=== PATIENT | male | born 1955 | race Caucasian/White ===

== ENCOUNTER → 2019-04-17 13:40 | Outpatient (CLI) | payer BC, SELFPAY ==
--- NOTE | 2019-04-17 13:45 | US_ITS ---
HISTORY: CKD 3 EXAMINATION: US Kidney(s) complete (eg, kidneys T bladder) TECHNIQUE: Bruce scale and color doppler images were obtained of the kidneys. 53 images COMPARISON: None FINDINGS: RIGHT KIDNEY: Measures 10 x 4.6 x 5.3 cm. The cortex is 12 mm thick. Mild right renal hydronephrosis. No shadowing calculus, focal lesion or perinephric collection is demonstrated. LEFT KIDNEY: Measures 8.1 x 4.1 x 4.8 cm. Cortex is 12 mm thick. There is no hydronephrosis. No shadowing calculus, focal lesion or perinephric collection is demonstrated. URINARY BLADDER: The urinary bladder is mostly decompressed US/Kidney and Bladder IMPRESSION: Mild right hydronephrosis. at 0318 Reported and signed by: Gerald Hinds MD Electronically Signed: Gerald Hinds MD at 3:17 EDT Tel , Service support ,
== END ==
PROVIDERS: Family Provider Nurse Practitioner Family; PCP Nurse Practitioner Family; Referring Provider Internal Medicine Nephrology; Visit Provider Internal Medicine Nephrology
DX: N18.3 Chronic kidney disease, stage 3 (moderate) (principal); R80.9 Proteinuria, unspecified
CPT/HCPCS: 76770

== ENCOUNTER → 2019-05-19 09:44 | Outpatient (CLI) | payer BC, SELFPAY ==
[2019-05-19 10:57] LABS: PSA,Total - Annual Screen 1.08 ng/mL (0.00-4.00)
== END ==
PROVIDERS: Family Provider Nurse Practitioner Family; PCP Nurse Practitioner Family; Referring Provider Urology; Visit Provider Urology
DX: Z12.5 Encounter for screening for malignant neoplasm of prostate (principal)
CPT/HCPCS: 36415; 84153; G0103

== ENCOUNTER → 2019-05-27 14:52 | Outpatient (CLI) | payer BC, SELFPAY ==
--- NOTE | 2019-05-27 15:00 | CT_ITS ---
STUDY: CT ABDOMEN AND PELVIS WITHOUT CONTRAST REASON FOR EXAM: Male, 63 years old. Elevated RADIATION DOSAGE (If Supplied By Facility): CTDIvol = ( 9.65 ) mGy, DLP = ( 469.96 ) mGycm TECHNIQUE: Transaxial images were obtained from the dome of the diaphragm to the symphysis pubis without oral contrast, and without intravenous contrast. Sagittal and coronal images were reconstructed. Individualized dose optimization techniques were used for this CT. COMPARISON: None. FINDINGS: The visualized lung bases are unremarkable. The visualized portions of the heart are within normal limits. Normal liver. Normal gallbladder and extrahepatic biliary system. Normal spleen. Normal pancreas. Normal bilateral adrenal glands. No hydronephrosis or urinary tract calcifications. Normal visualized stomach. Normal small intestine. There are multiple colonic diverticula consistent with diverticulosis. The appendix is visualized and appears normal. There is diffuse atherosclerotic calcification of the abdominal aorta, without a demonstrated aneurysm. Normal inferior vena cava. Normal retroperitoneum. There is thickening of the inferior urinary bladder wall (coronal image 57) measuring up to 7 mm that may be artifact of incomplete distention versus true wall thickening. Prostate is mildly enlarged. There are operative changes of the bilateral inguinal regions. Normal osseous structures. CT/Abdomen/Pelvis without Cont IMPRESSION: 1. No hydronephrosis or urinary tract calcifications. 2. Inferior urinary bladder wall thickening (cystitis, muscular hyperplasia versus neoplasm) versus artifact of under distention. 3. Diverticulosis without evidence of diverticulitis. 4. Mild prostamegaly. Electronically Signed: Loyd Olivo MD (Brooks) at 18:56 EST , Service support ,
== END ==
PROVIDERS: Family Provider Nurse Practitioner Family; PCP Nurse Practitioner Family; Referring Provider Urology; Visit Provider Urology
DX: N13.39 Other hydronephrosis (principal)
CPT/HCPCS: 74176

== ENCOUNTER → 2020-01-04 08:34 | Outpatient (CLI) | payer MEDICARE, SELFPAY ==
[2020-01-04 09:41] LABS: Hematocrit 43.3 % (40-54); Hemoglobin 13.7 g/dL (13.0-16.5); Mean Corp Hgb Conc 31.6 g/dL (32-36); Mean Corpuscular Hgb 30.2 pg (27.0-32.0); Mean Corpuscular Volume 95.4 fL (80-94); Mean Platelet Vol. 10.3 fl (6.2-12.0); Platelet Count 214 K/mm3 (150-450); RBC Distribution Width CV 13.3 % (11.6-14.6); RBC Distribution Width SD 46.8 fl (35.1-43.9); Red Blood Count 4.54 M/mm3 (4.6-6.2); White Blood Count 6.5 K/mm3 (4.4-11.0)
[2020-01-04 09:52] LABS: Protein, Urine (Random) 6.4 mg/dL (<11.9); Protein:Creat Ratio 151 mg/g CRE (0-200)
[2020-01-04 10:09] LABS: Albumin, Serum 3.8 g/dL (3.2-5.0); BUN 27 mg/dL (7-18); BUN/Creat Ratio 20.8 RATIO (10-20); Calcium,Total 8.7 mg/dL (8.5-10.1); Chloride 104 mmol/L (98-107); EST Glomerular Filtration Rate 59 mL/min (>60); Est Glom Filt Rate - Afr Amer 71 mL/min (>60); Glucose 99 mg/dL (74-106); Phosphorus 2.6 mg/dL (2.5-4.9); Potassium 4.1 mmol/L (3.5-5.1); Sodium Level 140 mmol/L (136-145)
== END ==
PROVIDERS: Family Provider Nurse Practitioner Family; PCP Nurse Practitioner Family; Referring Provider Internal Medicine Nephrology; Visit Provider Internal Medicine Nephrology
DX: N18.3 Chronic kidney disease, stage 3 (moderate) (principal); R80.9 Proteinuria, unspecified
CPT/HCPCS: 36415; 80069; 82570; 84156; 85027

== ENCOUNTER → 2020-07-25 11:19 | Outpatient (CLI) | payer MEDICARE, OTHER, SELFPAY ==
[2020-07-25 12:37] LABS: Albumin, Serum 3.6 g/dL (3.2-5.0); BUN 18 mg/dL (7-18); BUN/Creat Ratio 11.8 RATIO (10-20); Calcium,Total 8.8 mg/dL (8.5-10.1); Chloride 104 mmol/L (98-107); Creatinine, Serum 1.52 mg/dL (0.70-1.30); EST Glomerular Filtration Rate 49 mL/min (>60); Est Glom Filt Rate - Afr Amer 59 mL/min (>60); Glucose 101 mg/dL (74-106); Phosphorus 2.6 mg/dL (2.5-4.9); Potassium 4.3 mmol/L (3.5-5.1); Sodium Level 139 mmol/L (136-145)
== END ==
PROVIDERS: Visit Provider Internal Medicine Nephrology
DX: N18.30 Chronic kidney disease, stage 3 unspecified (principal)
CPT/HCPCS: 36415; 80069

== ENCOUNTER → 2021-02-07 09:04 | Outpatient (CLI) | payer MEDICARE, OTHER, SELFPAY ==
[2021-02-07 10:06] LABS: Albumin, Serum 3.6 g/dL (3.2-5.0); BUN 24 mg/dL (7-18); BUN/Creat Ratio 16.7 RATIO (10-20); Calcium,Total 8.9 mg/dL (8.5-10.1); Chloride 105 mmol/L (98-107); Creatinine, Serum 1.44 mg/dL (0.70-1.30); EST Glomerular Filtration Rate 52 mL/min (>60); Est Glom Filt Rate - Afr Amer 63 mL/min (>60); Glucose 114 mg/dL (74-106); Potassium 3.9 mmol/L (3.5-5.1); Sodium Level 140 mmol/L (136-145)
== END ==
PROVIDERS: Referring Provider Internal Medicine Nephrology; Visit Provider Internal Medicine Nephrology
DX: N18.30 Chronic kidney disease, stage 3 unspecified (principal)
CPT/HCPCS: 36415; 80069

== ENCOUNTER → 2022-02-06 | Outpatient (CLI) | payer MEDICARE, OTHER, SELFPAY ==
[2022-02-06 10:55] LABS: Protein, Urine (Random) < 6.0 mg/dL (<11.9); Protein:Creat Ratio 279 mg/g CRE (0-200)
[2022-02-06 11:11] LABS: Albumin, Serum 3.7 g/dL (3.2-5.0); BUN 29 mg/dL (7-18); BUN/Creat Ratio 17.2 RATIO (10-20); Calcium,Total 9.3 mg/dL (8.5-10.1); Chloride 106 mmol/L (98-107); Creatinine, Serum 1.69 mg/dL (0.70-1.30); EST Glomerular Filtration Rate 43 mL/min (>60); Est Glom Filt Rate - Afr Amer 52 mL/min (>60); Glucose 94 mg/dL (74-106); Phosphorus 2.8 mg/dL (2.5-4.9); Potassium 4.3 mmol/L (3.5-5.1); Sodium Level 139 mmol/L (136-145)
== END | disposition home or self-care (01) ==
PROVIDERS: Visit Provider Internal Medicine Nephrology
DX: N18.30 Chronic kidney disease, stage 3 unspecified (principal); R80.9 Proteinuria, unspecified
CPT/HCPCS: 36415; 80069; 82570; 84156

== ENCOUNTER → 2022-03-26 | Outpatient (CLI) | payer MEDICARE, OTHER, SELFPAY ==
[2022-03-26 13:36] LABS: Albumin, Serum 3.6 g/dL (3.2-5.0); BUN 28 mg/dL (7-18); BUN/Creat Ratio 15.8 RATIO (10-20); Calcium,Total 9.2 mg/dL (8.5-10.1); Chloride 104 mmol/L (98-107); Creatinine, Serum 1.77 mg/dL (0.70-1.30); EST Glomerular Filtration Rate 41 mL/min (>60); Est Glom Filt Rate - Afr Amer 49 mL/min (>60); Glucose 102 mg/dL (74-106); Phosphorus 2.9 mg/dL (2.5-4.9); Potassium 4.7 mmol/L (3.5-5.1); Sodium Level 139 mmol/L (136-145)
== END | disposition home or self-care (01) ==
LOC: LAB 11:34
PROVIDERS: Referring Provider Internal Medicine Nephrology; Visit Provider Internal Medicine Nephrology
DX: N18.30 Chronic kidney disease, stage 3 unspecified (principal)
CPT/HCPCS: 36415; 80069

== ENCOUNTER → 2022-08-30 | Outpatient (CLI) | payer MEDICARE, OTHER, SELFPAY ==
[2022-08-30 10:48] LABS: Albumin, Serum 3.6 g/dL (3.2-5.0); BUN 36 mg/dL (7-18); BUN/Creat Ratio 21.3 RATIO (10-20); Calcium,Total 9.2 mg/dL (8.5-10.1); Chloride 104 mmol/L (98-107); Creatinine, Serum 1.69 mg/dL (0.70-1.30); EST Glomerular Filtration Rate 43 mL/min (>60); Est Glom Filt Rate - Afr Amer 52 mL/min (>60); Glucose 97 mg/dL (74-106); Phosphorus 3.4 mg/dL (2.5-4.9); Potassium 4.9 mmol/L (3.5-5.1); Sodium Level 139 mmol/L (136-145)
== END | disposition home or self-care (01) ==
PROVIDERS: Visit Provider Internal Medicine Nephrology
DX: N18.30 Chronic kidney disease, stage 3 unspecified (principal)
CPT/HCPCS: 36415; 80069

== ENCOUNTER → 2022-10-18 | Outpatient (CLI) | payer MEDICARE, OTHER, SELFPAY ==
[2022-10-18 11:42] LABS: PSA,Total - Annual Screen 1.32 ng/mL (0.00-4.00)
== END | disposition home or self-care (01) ==
PROVIDERS: Referring Provider Registered Nurse; Visit Provider Registered Nurse
DX: Z12.5 Encounter for screening for malignant neoplasm of prostate (principal)
CPT/HCPCS: 36415; 84153; G0103

== ENCOUNTER → 2023-05-07 | Outpatient (CLI) | payer MEDICARE, OTHER, SELFPAY ==
[2023-05-07 11:17] LABS: Hematocrit 40.3 % (40-54); Hemoglobin 12.9 g/dL (13.0-16.5); Mean Corpuscular Hgb 30.9 pg (27.0-32.0); Mean Corpuscular Volume 96.4 fL (80-94); Mean Platelet Vol. 10.2 fl (6.2-12.0); Platelet Count 211 K/mm3 (150-450); RBC Distribution Width CV 13.2 % (11.6-14.6); RBC Distribution Width SD 47.1 fl (35.1-43.9); Red Blood Count 4.18 M/mm3 (4.6-6.2); White Blood Count 6.3 K/mm3 (4.4-11.0)
[2023-05-07 11:59] LABS: Albumin, Serum 3.5 g/dL (3.2-5.0); BUN 34 mg/dL (7-18); BUN/Creat Ratio 21.5 RATIO (10-20); Calcium,Total 8.8 mg/dL (8.5-10.1); Chloride 107 mmol/L (98-107); Creatinine, Serum 1.58 mg/dL (0.70-1.30); EST Glomerular Filtration Rate 46 mL/min (>60); Est Glom Filt Rate - Afr Amer 56 mL/min (>60); Glucose 96 mg/dL (74-106); Phosphorus 2.9 mg/dL (2.5-4.9); Potassium 4.6 mmol/L (3.5-5.1); Sodium Level 138 mmol/L (136-145)
== END | disposition home or self-care (01) ==
PROVIDERS: Referring Provider Internal Medicine Nephrology; Visit Provider Internal Medicine Nephrology
DX: N18.31 Chronic kidney disease, stage 3a (principal)
CPT/HCPCS: 36415; 80069; 85027

== ENCOUNTER → 2024-02-03 | Outpatient (CLI) | payer MEDICARE, OTHER, SELFPAY ==
[2024-02-03 12:53] LABS: PSA,Total - Annual Screen 2.32 ng/mL (0.00-4.00)
== END | disposition home or self-care (01) ==
LOC: LAB 11:27
PROVIDERS: Referring Provider Urology; Visit Provider Urology
DX: Z12.5 Encounter for screening for malignant neoplasm of prostate (principal)
CPT/HCPCS: 36415; 84153; G0103

== ENCOUNTER → 2024-02-17 | Outpatient (CLI) | payer MEDICARE, OTHER, SELFPAY ==
[2024-02-17 11:01] LABS: Albumin, Serum 3.6 g/dL (3.2-5.0); BUN 36 mg/dL (7-18); BUN/Creat Ratio 19.7 RATIO (10-20); Calcium,Total 9.2 mg/dL (8.5-10.1); Chloride 111 mmol/L (98-107); Creatinine, Serum 1.83 mg/dL (0.70-1.30); EST Glomerular Filtration Rate 39 mL/min (>60); Est Glom Filt Rate - Afr Amer 47 mL/min (>60); Glucose 98 mg/dL (74-106); Phosphorus 2.8 mg/dL (2.5-4.9); Potassium 4.7 mmol/L (3.5-5.1); Sodium Level 140 mmol/L (136-145)
[2024-02-17 11:02] LABS: Protein, Urine (Random) < 6.0 mg/dL (<11.9)
== END | disposition home or self-care (01) ==
LOC: LAB.FUTURE 09:48 → LAB 09:49
PROVIDERS: Referring Provider Internal Medicine Nephrology; Visit Provider Internal Medicine Nephrology
DX: R80.9 Proteinuria, unspecified (principal); N18.31 Chronic kidney disease, stage 3a
CPT/HCPCS: 36415; 80069; 82570; 84156

== ENCOUNTER → 2024-07-27 | Outpatient (CLI) | payer MEDICARE, OTHER, SELFPAY ==
[2024-07-27 11:25] LABS: Albumin, Serum 3.6 g/dL (3.2-5.0); BUN 37 mg/dL (7-18); Calcium,Total 9.1 mg/dL (8.5-10.1); Chloride 107 mmol/L (98-107); Creatinine, Serum 1.68 mg/dL (0.70-1.30); EST Glomerular Filtration Rate 43 mL/min (>60); Est Glom Filt Rate - Afr Amer 52 mL/min (>60); Glucose 93 mg/dL (74-106); Phosphorus 3.1 mg/dL (2.5-4.9); Potassium 4.8 mmol/L (3.5-5.1); Sodium Level 138 mmol/L (136-145)
== END | disposition home or self-care (01) ==
LOC: LAB 10:33
PROVIDERS: Visit Provider Internal Medicine Nephrology
DX: N18.31 Chronic kidney disease, stage 3a (principal); R80.9 Proteinuria, unspecified
CPT/HCPCS: 36415; 80069

== ENCOUNTER → 2025-03-29 | Outpatient (CLI) | payer MEDICARE, OTHER, SELFPAY ==
--- OUTSIDE RECORDS SUMMARY | 2025-02-03 09:22 | XMS RPT_ITS ---
Author Name Auto Generated Organization [facility] Care Team Providers Care Mop Handle Assembler Name Role Phone DR MIKALA POWERS MD Attending Unavailab le DUANE DO, DR STEVEN Primary Care Unavailable DUANE DO, DR STEVEN Attending Unavailable DUANE DO, DR STEVEN Primary Care Unavailable DUANE DO, DR STEVEN Attending Unavailable DUANE DO, DR STEVEN Primary Care Unavailable PROBLEMS No Problem Records Found PROCEDURES No Procedure Records Found RESULTS PBNP Collected: 02/03/2025 9:27 AM Status: F Source: [facility] TYPE CODE TESTS RESULT OUT OF RANGE REFERENCE UNITS LAB PBNP(LOINC) N-Terminal proBNP 176 High 0-125 pg/mL Result Comment: NT-proBNP re sults of less than 300 pg/mL effectively rules out acute congestive heart failure with 99% negative predictive value. Performed By: #### LIPID, PB HEEL DIPPER #### [address] [address] LIPID Collected: 02/03/2025 9:27 AM Status: F Source: [facility] TYPE CODE TESTS RESULT OUT OF RANGE REFERENCE UNITS LAB CHOL(LOINC) Cholesterol 181 0-200 mg/dL Result Comment: Cholesterol Reference Interval: Less than 200 Desirable 200-239 Borderline high risk 240 and above High risk LAB TRIG(LOINC) Triglycerides 71 0-150 mg/dL Result Comment: Triglyceride Reference Interval: Less than 150 Normal 150-199 Borderline high risk 200-499 High risk 500 or higher Very high risk LAB HD(LOINC) HDL Cholesterol 53 40-60 mg/dL LAB LDL(LOINC) LDL Cholesterol 114 0-130 mg/dL Performed By: #### LIPID, PB HEEL DIPPER #### [address] [address] TSH Collected: 11:21 AM Status: F Source: [facility] TYPE [facility] TESTS RESULT OUT OF RANGE REFERENCE UNITS LAB TSH(LOINC) TSH 2.71 0.36-3.74 mcIU/mL Performed By: #### FT3, TSH, FT4 #### [address] [address] FT4 Collected: 11:21 AM Status: F Source: [facility] TYPE [facility] TESTS RESULT OUT OF RANGE REFERENCE UNITS LAB FT4(LOINC) Free T4 1.07 0.76-1.46 ng/dL Performed By: #### FT3, TSH, FT4 #### [address] [address] FT3 Collected: 5 11:21 AM Status: F Source: [facility] TYPE [facility] TESTS RESULT OUT OF RANGE REFERENCE UNITS LAB FT3(LOINC) Free T3 2.25 Low 2.30-4.00 pg/mL Performed By: #### FT3, TSH, FT4 #### [address] [address] CBC Collected: 5 3:14 PM Status: F Source: [facility] TYPE CODE TESTS RESULT OUT OF RANGE REFERENCE UNITS LAB WBC(LOINC) WBC 5.9 4.5-10.8 10 3/mcL LAB RBCCT(LOINC) RBC 4.25 Low 4.50-6.00 10 6/mcL LAB HGB(LOINC) Hgb 13.2 13.0-17.5 G/dL LAB HCT(LOINC) Hct 39.5 Low 40.0-52.0 % LAB MCV(LOINC) MCV 93.0 81.0-100.0 fL LAB MCH(LOINC) MCH 31.1 27.0-33.0 pg LAB MCHC(LOINC) MCHC 33.4 32.0-36.0 G/dL LAB RDW(LOINC) RDW 14.0 11.5-15.5 % LAB PLT(LOINC) Platelet 183 150-450 10 3/mcL LAB MPV(LOINC) MPV 7.6 6.4-10.5 fL Performed By: #### FT4, FE, CMP, CBC, GFR, FT3, ANEU, ADIFF, TSH, FERR #### [address] [address] .AUTO DIFF Collected: 10/27/2024 3:14 PM Status: F Source: [facility] TYPE CODE TESTS RESULT OUT OF RANGE REFERENCE UNITS LAB JODY(LOINC) Neutrophil % 61.7 50.0-75.0 % LAB LYM(LOINC) Lymphocyte % 24.2 20.0-40.0 % LAB MON(LOINC) Monocyte % 10.2 2.0-13.0 % LAB EO(LOINC) Eosinophil % 3.2 0.0-6.0 % LAB BAS(LOINC) Basophil % 0.7 0.0-2.5 % LAB ABLYM(LOINC) Lymphocyte, Absolute 1.4 0.9-4.3 10 3/mcL LAB SHELLEY(LOINC) Monocyte, Absolute 0.6 0.1-1.4 10 3/mcL LAB AEOS(LOINC) Eosinophil, Absolute 0.2 0.0-0.7 10 3/mcL LAB ABAS(LOINC) Basophil, Absolute 0.0 0.0-0.3 10 3/mcL Performed By: #### FT4, FE, CMP, CBC, GFR, FT3, ANEU, ADIFF, TSH, FERR #### [place] [address] [place], [place] [address] .NEUABS Collected: 3:14 PM Status: F Source: [facility] TYPE [facility] TESTS RESULT OUT OF RANGE REFERENCE UNITS LAB ANEU(LOINC) Neutrophil, Absolute 3.7 2.3-8.1 10 3/mcL Performed By: #### FT4, FE, CMP, CBC, GFR, FT3, ANEU, ADIFF, TSH, FERR #### [address] [address] FE Collected: 3:14 PM Status: F Source: [facility] TESTS RESULT OUT OF RANGE REFERENCE UNITS LAB FE(LOINC) Iron 97 65-175 mcg/dL Performed By: #### FT4, FE, CMP, CBC, GFR, FT3, ANEU, ADIFF, TSH, FERR #### [address] [address] FT3 Collected: 5 3:14 PM Status: F Source: [facility] TESTS RESULT OUT OF RANGE REFERENCE UNITS LAB FT3(LOINC) Free T3 2.36 2.30-4.00 pg/mL Performed By: #### FT4, FE, CMP, CBC, GFR, FT3, ANEU, ADIFF, TSH, FERR #### [address] [address] FERR Collected: 3:14 PM Status: F Source: [facility] TYPE [facility] TESTS RESULT OUT OF RANGE REFERENCE UNITS LAB FERR(LOINC) Ferritin 64.0 26.0-388.0 ng/mL Performed By: #### FT4, FE, CMP, CBC, GFR, FT3, ANEU, ADIFF, TSH, FERR #### [address] [address] TSH Collected: 5 3:14 PM Status: F Source: [facility] TYPE [facility] TESTS RESULT OUT OF RANGE REFERENCE UNITS LAB TSH(LOINC) TSH 5.79 High 0.36-3.74 mcIU/mL Performed By: #### FT4, FE, CMP, CBC, GFR, FT3, ANEU, ADIFF, TSH, FERR #### [address] [place], [place] [address] FT4 Collected: 3:14 PM Status: F Source: [facility] TYPE CODE TESTS RESULT OUT OF RANGE REFERENCE UNITS LAB FT4(LOINC) Free T4 1.08 0.76-1.46 ng/dL Performed By: #### FT4, FE, CMP, CBC, GFR, FT3, ANEU, ADIFF, TSH, FERR #### [address] [place], [place] [address] CMP Collected: 10/27/2024 3:14 PM Status: F Source: [facility] TYPE CODE TESTS RESULT OUT OF RANGE REFERENCE UNITS LAB GLU(LOINC) Glucose Level 90 83-110 mg/dL LAB NA(LOINC) Sodium Level 140 136-145 mmol/L LAB K(LOINC) Potassium Level 4.9 3.5-5.1 mmol/L LAB CL(LOINC) Chloride 105 98-107 mmol/L LAB CO2(LOINC) CO2 29 23-31 mmol/L LAB EBAL(LOINC) Electrolyte Balance 6.0 4.0-15.0 mEq/L LAB BUN(LOINC) BUN 37 High 7-18 mg/dL LAB CRE(LOINC) Creatinine Lvl (s) 1.65 High 0.67-1.17 mg/dL LAB BC(LOINC) BUN/Creatinine Ratio 22 7-27 ratio LAB CA(LOINC) Calcium Lvl 9.5 8.4-10.2 mg/dL LAB PROT(LOINC) Total Protein 7.1 6.4-8.2 G/dL LAB ALB(LOINC) Albumin Level 3.8 3.4-4.8 G/dL LAB GLB(LOINC) Globulin 3.3 2.7-4.4 G/dL LAB AG(LOINC) A/G Ratio 1.2 1.1-2.5 ratio LAB BILT(LOINC) Bili Total 0.3 0.2-1.0 mg/dL Result Comment: Use of this assay is not recommended for patients undergoing treatment with eltrombopag due to the potential for falsely elevated results. LAB AP(LOINC) Alk Phos 89 40-135 U/L LAB AST(LOINC) AST/SGOT 19 10-40 U/L LAB ALT(LOINC) ALT/SGPT 26 16-63 U/L Performed By: #### FT4, FE, CMP, CBC, GFR, FT3, ANEU, ADIFF, TSH, FERR #### [address] [place], [place] [address] .GFR Collected: 10/27/2024 3:14 PM Status: F Source: [facility] TYPE CODE TESTS RESULT OUT OF RANGE REFERENCE UNITS LAB eGFR(LOINC) Estimated Glomerular Filtration Rate 44 ml/min/1. 73sqm Result Comment: Stages of Chronic Kidney Disease (CKD) Stage Description eGFR(ml/min/1.73 sq.m.) CKD 1 Normal kidney function or >=90 normal kindney function with possible kidney damage (ex. Proteinuria) CKD 2 Kidney damage with mild loss 60-89 of kidney function CKD 3a Mild to moderate loss of kidney 45-59 function CKD 3b Moderate to severe loss of 30-44 of kindey function CKD 4 Severe loss of kidney function 15-29 CKD 5 Kidney failure <15 Note: (go live 2024) the eGFR calculation was updated to the 2020 CKD-EPI creatinine equation without a race factor to calculate the eGFR results. Performed By: #### FT4, FE, CMP, CBC, GFR, FT3, ANEU, ADIFF, TSH, FERR #### [address] [place], [place] [address] ALLERGIES No Allergies Records Found ENCOUNTERS ADMIT/DISCHARGE ACCOUNT NUMBER ADMITTING ENCOUNTER CLASS LOC ATION SOURCE 02/03/2025/ 5 [id number] [facility]11[facility]2024/ 5 [id number] [facility] 10/27/2024/ 5 [id number] [facility] PAYERS ENCOUNTER GUARANTOR PAYER SUBSCRIBER SOURCE 02/03/2025 WYATT LEONARD: [id number] [address] [place] [phone]~cottonm [email or web address] el: (HP) Primary Insurance:MEDICARE PART B INSCOPolicy Number: [id number] Date:6033-12-12Sdbb Name:[facility] [address] [place] [address]ZA: WYATT L LEKALAANDOB: [id number] [address] [place] [phone]: (HP) (WP) [facility] 02/03/2025 Secondary Insurance:EVERENCE INSCOPolicy Number: [id number] Date:1004-25-75Cuzd Name:[place] [address]NL: WYATT L LEHMANDOB: [id number] [address]Oxo: (HP) (WP) [facility] 12/11/2024 WYATT L LEKLAAANDOB: [id number] [address] [address]~Quraterkita [email or web address] el: (HP) Primary Insurance:EVERENCE INSCOPolicy Number: [id number] Date:5619-98-95Sgfv Name:[place] [address]YY: WYATT L LEHMANDOB: [id number] [address] [place] [phone]: (HP) (WP) [facility] 12/11/2024 Secondary Insurance:MEDICARE PART B INSCOPolicy Number: [id number] Date:2856-21-89Ojzi Name:[facility] ADMINISTRATORS [address] [place] [address]MU: WYATT OWENSANDOB: [id number] [address] [place] [phone]: (HP) (WP) [facility] 10/27/2024 WYATT OWENSANDOB: [id number] [address] [place] [phone]~[email or web address] el: (HP) Primary Insurance:MEDICARE PART B INSCOPolicy Number: [id number] Date:5144-52-91Trjp Name:[facility] CITYKar SING[address] [address]NQ: WYATT OWENSANDOB: [id number] [address]Vot: (HP) (WP) [facility] 10/27/2024 Secondary Insurance:EVERENCE INSCOPolicy Number: [id number] Date:5196-29-55Vlzb Name:JOSIAH Arm[place] [address]SD: WYATT URIARTEOB: [id number] [address]Oiy: (HP) (WP) [facility]
--- OUTSIDE RECORDS SUMMARY | 2025-02-03 09:22 | XMS RPT_ITS ---
Author Name Auto Generated Organization [facility] Care Team Providers Care Trimmer Buffing Wheel Name Role Phone DR MIKALA POWERS MD Attending Unavailab le DUANE DO, DR STEVEN Primary Care Unavailable DUANE DO, DR STEVEN Attending Unavailable DUANE DO, DR STEVEN Primary Care Unavailable DUANE DO, DR STEVEN Attending Unavailable DUANE DO, DR STEVEN Primary Care Unavailable PROBLEMS No Problem Records Found PROCEDURES No Procedure Records Found RESULTS PBNP Collected: 02/03/2025 9:27 AM Status: F Source: [facility] TYPE CODE TESTS RESULT OUT OF RANGE REFERENCE UNITS LAB PBNP(LOINC) N-Terminal proBNP 176 High 0-125 pg/mL Result Comment: NT-proBNP re sults of less than 300 pg/mL effectively rules out acute congestive heart failure with 99% negative predictive value. Performed By: #### LIPID, PB CIGAR MAKING MACHINE SUPERVISOR #### [address] [address] LIPID Collected: 02/03/2025 9:27 AM Status: F Source: [facility] TYPE CODE TESTS RESULT OUT OF RANGE [...] 0-130 mg/dL Performed By: #### LIPID, PB CIGAR MAKING MACHINE SUPERVISOR #### [address] [address] TSH Collected: 11:21 AM Status: F Source: [facility] TYPE [facility] TESTS RESULT OUT OF RANGE REFERENCE UNITS LAB TSH(LOINC) TSH 2.71 0.36-3.74 mcIU/mL Performed By: #### FT3, TSH, FT4 #### [address] [address] FT4 Collected: 11:21 AM Status: F Source: [facility] TYPE [facility] TESTS RESULT OUT OF RANGE REFERENCE UNITS LAB FT4(LOINC) Free T4 1.07 0.76-1.46 ng/dL Performed By: #### FT3, TSH, FT4 #### [address] [address] FT3 Collected: 5 11:21 AM Status: F Source: [facility] TYPE [facility] TESTS RESULT OUT OF RANGE REFERENCE UNITS LAB FT3(LOINC) Free T3 2.25 Low 2.30-4.00 pg/mL Performed By: #### FT3, TSH, FT4 #### [address] [address] CBC Collected: 5 3:14 PM Status: F Source: [facility] TYPE CODE TESTS RESULT OUT OF RANGE [...] GFR, FT3, ANEU, ADIFF, TSH, FERR #### [address] [address] .AUTO DIFF Collected: 10/27/2024 3:14 PM Status: F Source: [facility] TYPE CODE TESTS RESULT OUT OF RANGE [...] FT3, ANEU, ADIFF, TSH, FERR #### [place] [address] [place], [place] [address] .NEUABS Collected: 3:14 PM Status: F Source: [facility] TYPE [facility] TESTS RESULT OUT OF RANGE REFERENCE UNITS LAB ANEU(LOINC) Neutrophil, Absolute 3.7 2.3-8.1 10 3/mcL Performed By: #### FT4, FE, CMP, CBC, GFR, FT3, ANEU, ADIFF, TSH, FERR #### [address] [address] FE Collected: 3:14 PM Status: F Source: [facility] TESTS RESULT OUT OF RANGE REFERENCE UNITS LAB FE(LOINC) Iron 97 65-175 mcg/dL Performed By: #### FT4, FE, CMP, CBC, GFR, FT3, ANEU, ADIFF, TSH, FERR #### [address] [address] FT3 Collected: 5 3:14 PM Status: F Source: [facility] TESTS RESULT OUT OF RANGE REFERENCE UNITS LAB FT3(LOINC) Free T3 2.36 2.30-4.00 pg/mL Performed By: #### FT4, FE, CMP, CBC, GFR, FT3, ANEU, ADIFF, TSH, FERR #### [address] [address] FERR Collected: 3:14 PM Status: F Source: [facility] TYPE [facility] TESTS RESULT OUT OF RANGE REFERENCE UNITS LAB FERR(LOINC) Ferritin 64.0 26.0-388.0 ng/mL Performed By: #### FT4, FE, CMP, CBC, GFR, FT3, ANEU, ADIFF, TSH, FERR #### [address] [address] TSH Collected: 5 3:14 PM Status: F Source: [facility] TYPE [facility] TESTS RESULT OUT OF RANGE REFERENCE UNITS LAB TSH(LOINC) TSH 5.79 High 0.36-3.74 mcIU/mL Performed By: #### FT4, FE, CMP, CBC, GFR, FT3, ANEU, ADIFF, TSH, FERR #### [address] [place], [place] [address] FT4 Collected: 3:14 PM Status: F Source: [facility] TYPE CODE TESTS RESULT OUT OF RANGE REFERENCE UNITS LAB FT4(LOINC) Free T4 1.08 0.76-1.46 ng/dL Performed By: #### FT4, FE, CMP, CBC, GFR, FT3, ANEU, ADIFF, TSH, FERR #### [address] [place], [place] [address] CMP Collected: 10/27/2024 3:14 PM Status: F Source: [facility] TYPE CODE TESTS RESULT OUT OF RANGE [...] GFR, FT3, ANEU, ADIFF, TSH, FERR #### [address] [place], [place] [address] .GFR Collected: 10/27/2024 3:14 PM Status: F Source: [facility] TYPE CODE TESTS RESULT OUT OF RANGE [...] GFR, FT3, ANEU, ADIFF, TSH, FERR #### [address] [place], [place] [address] ALLERGIES No Allergies Records Found ENCOUNTERS ADMIT/DISCHARGE ACCOUNT NUMBER ADMITTING ENCOUNTER CLASS LOC ATION SOURCE 02/03/2025/ 5 [id number] [facility] 12/11[facility]2024/ 5 [id number] [facility] 10/27/2024/ 5 [id number] [facility] PAYERS ENCOUNTER GUARANTOR PAYER SUBSCRIBER SOURCE 02/03/2025 WYATT LEONARD: [id number] [address] [place] [phone]~cottonm onGazelle [email or web address] el: (HP) Primary Insurance:MEDICARE PART B INSCOPolicy Number: [id number] Date:3428-83-97Zwvb Name:[facility] [place] [place] [address]LV: WYATT L LEKALAANDOB: [id number] [address] [place] [phone]: (HP) (WP) [facility] 02/03/2025 Secondary Insurance:EVERENCE INSCOPolicy Number: [id number] Date:0592-41-19Lfyn Name:DRY CELL [place] [address]HL: WYATT L LEHMANDOB: [id number] [address]Lmu: (HP) (WP) [facility] 12/11/2024 WYATT L LEKALAANDOB: 7267-00-00RV [address] [address]~Talkokita onG[email or web address] el: (HP) Primary Insurance:EVERENCE INSCOPolicy Number: [id number] Date:2507-05-48Cjdr Name:DRY CELL [place] [address]OD: WYATT L LEHMANDOB: 0048-33-82SIPRA [address] [place] [phone]: (HP) (WP) [facility] 12/11/2024 Secondary Insurance:MEDICARE PART B INSCOPolicy Number: [id number] Date:3588-16-25Hehd Name:[facility] ADMINISTRATORS [address] [place] [address]EG: WYATT OWENSANDOB: 8836-27-37NJUED [address] [place] [phone]: (HP) (WP) [facility] 10/27/2024 WYATT OWENSANDOB: 4248-58-22VJ [address] [place] [email or web address] el: (HP) Primary Insurance:MEDICARE PART B INSCOPolicy Number: [id number] Date:3715-26-10Tcyt Name:[facility] [place] [facility] SING[address] [address]QL: WYATT OWENSANDOB: [id number] [address]Qfz: (HP) (WP) [facility] 10/27/2024 Secondary Insurance:EVERENCE INSCOPolicy Number: [id number] Date:4703-57-32Xzsv Name:JOSIAH Armas [address]PX: WYATT URIARTEOB: 2625-82-79ULNIL[address] [address]Kus: (HP) (WP) [facility]
[2025-03-29 12:17] LABS: PTHIN 57 pg/mL (11-61)
[2025-03-29 12:19] LABS: Albumin, Serum 4.2 g/dL (3.4-4.8); Anion Gap 11 (5-15); BUN 30 mg/dL (4-19); BUN/Creat Ratio 19.9 RATIO (10-20); Calcium,Total 9.4 mg/dL (7.6-11.0); Carbon Dioxide 25.4 mmol/L (21.0-32.0); Chloride 105 mmol/L (98-108); Glucose 89 mg/dL (70-99); Potassium 5.1 mmol/L (3.3-5.1)
== END | disposition home or self-care (01) ==
LOC: LAB 10:25
PROVIDERS: Referring Provider Internal Medicine Nephrology; Visit Provider Internal Medicine Nephrology
DX: N18.32 Chronic kidney disease, stage 3b (principal)
CPT/HCPCS: 36415; 80069; 83970